=== PATIENT | male | born 2000 | race Caucasian/White ===

== ENCOUNTER 2021-08-08 18:12 | Emergency (ER) | payer MEDICAID ==
[~2021-08-08] VITALS: Ht 170.2 cm; Wt 91.0 kg
[2021-08-08 18:23] VITALS: BP 162/85
[2021-08-08 20:06] LABS: BASOPHILS % 0.6 % (0.0-2.0); EOSINOPHILS % 0.5 % (0.0-5.0); HEMOGLOBIN. 15.8 g/dL (14.0-18.0); MEAN CORPUSCULAR HEMOGLOBIN 30.5 pg (28.0-32.0); MEAN CORPUSCULAR VOLUME 90.8 fL (80.0-94.0); MEAN PLATELET VOLUME 8.6 fl (7.4-10.4); MONOCYTES % 5.6 % (2.0-8.0); NEUTROPHILS % 75.3 % (40.0-76.0); PLATELET 248 x1000/uL (130-400); RED BLOOD CELL COUNT 5.18 mill/uL (4.7-6.1); RED CELL DISTRIBUTION WIDTH 13.6 % (11.6-14.6)
[2021-08-08 20:09] LABS: CHLORIDE 109 mEq/L (98-107)
[2021-08-08 20:51] LABS: CLARITY URINE CLEAR (CLEAR); COLOR URINE YELLOW (YELLOW); KETONES URINE NEGATIVE (NEGATIVE); LEUKOCYTE ESTERASE URINE NEGATIVE (NEGATIVE); NITRITE URINE NEGATIVE (NEGATIVE); OCCULT BLOOD URINE NEGATIVE (NEGATIVE); PH URINE 5.5 (4.5-8.0); PROTEIN URINE NEGATIVE (NEGATIVE); SPECIFIC GRAVITY URINE 1.029 (1.005-1.030); UROBILINOGEN URINE 0.2 E.U./dL (0.2-1.0)
== END 2021-08-08 21:08 | disposition home or self-care (01) ==
LOC: ER 18:12
DX: K59.00 Constipation, unspecified (principal); K92.1 Melena; I10 Essential (primary) hypertension
CPT/HCPCS: 36415; 80053; 81003; 85025; 93005; 99284

== ENCOUNTER 2024-07-07 19:08 | Emergency (ER) | payer OTHER, MEDICAID ==
[~2024-07-07] VITALS: Ht 170.2 cm; Wt 85.0 kg
[2024-07-07 19:23] VITALS: O2SAT 96
[2024-07-07] MEDS: ONDANSETRON HCL 4MG TABLET PO ONE (20:38)
[2024-07-07] MEDS: ACETAMINOPHEN 500MG TABLET PO ONE (20:38)
[2024-07-07 21:48] VITALS: BP 129/84; PULSE 92; RESP 20; TEMP 37.55856; O2SAT 98
== END 2024-07-07 21:50 | disposition home or self-care (01) ==
LOC: ER 19:08
DX: B34.9 Viral infection, unspecified (principal); R11.2 Nausea with vomiting, unspecified; R05.9 Cough, unspecified
CPT/HCPCS: 99283; 87804 ×2; Q0162